=== PATIENT | female | born 1945 | race Caucasian/White ===

== ENCOUNTER → 2025-10-09 00:26 | Outpatient (CLI) | payer MEDICARE, OTHER, SELFPAY ==
--- NOTE | 2025-10-09 07:00 | DI.US_ITS ---
Exam(s) US NEEDLE LOCAL OTHER WO RAD EXAM: Ongoing left-sided submandibular lymphadenopathy,ULTRASOUND GUIDED BX,R59.0 COMPARISON: No exams were available for comparison TECHNIQUE: Ultrasound performed using standard protocol. FINDINGS: Sonography was provided for Dr. Thomas during the performance of a left submandibular lymph node biopsy. Please refer to the procedure report for complete details. DATA REPOSITORY:
--- NOTE | 2025-10-09 11:25 | PAPNONF_PTH ---
PATIENT: Heather Michaels LOC: [facility] U#:[id number] AGE/SX: 80/F ROOM: RE10/09/[address]: Mima Mcpherson : 1945 BED: DIS: SPEC #: [id number] RECD: 10/09/25 13:11 STATUS: FRITZ BUTTS #: [id number] CATHY: 10/09/25 11:[address]: Yonis Thomas DEPT: [facility] Cytology RECD BY: Elidia Amato ENTERED: 10/09/25 13:13 SP TYPE: HELGA GANDARA DR: Mar Leonardo Britney Tissues: 1 - BODY FLUID CYTO-FINE NEEDLE ASPIRATE-[facility] Procedures: BODY FLUID CYTO-FINE NEEDLE ASPIRATE-[facility] Comments: [id number] (PATH FNA CONSULT) (REFRIGERATED)
--- NOTE | 2025-10-09 12:34 | W.PROCNOTE ---
Date of service: 10/09/25 Time of Service: 12:35 Procedure Note Date of procedure: 10/09/25 Procedure: Ultrasound-guided FNA, left submandibular gland lesion, pathology present Surgeon/Proceduralist/Physician: Yonis Thomas Procedure Diagnosis: Left submandibular gland hypoechoic lesion Procedure Indications: The patient has a left hypoechoic region within her submandibular gland which was noted on previous ultrasounds. When this failed to resolve, options were explained to the patient regarding further management. She elected undergo a the above procedure. I reviewed the risks including bleeding, infection, and potential damage to the marginal mandibular nerve, she wished to proceed. Written consent was obtained, Procedure Description: The patient was then prepped and draped in appropriate fashion and ultrasound used to localize the lesion within the left submandibular gland. 2% lidocaine with 1/100,000 epinephrine was injected in the skin and subcutaneous tissues overlying the lesion and then a 25-gauge needle was passed into the posterior aspect of the lesion, and used to collect material. This revealed only inflammatory cells. A second pass was made into the lesion, this time approaching the anterior aspect of the lesion. Again the specimen revealed inflammatory cells. In both cases, ultrasound was used for guidance and visualization of the needle to be within the areas of concern. After discussion with the patient, no further biopsies were done. After ensuring adequate hemostasis, sterile dressing was applied to the site and the patient was allowed to sit, stand, and ambulate. She will remove the dressing in an hour and not replace it. She will call with any signs of infection or any other concerns. She will call if she does not hear from me within 1 week with regard to pathology results. She may use Tylenol for any discomfort. She had no further questions. She is comfortable with this plan. She is aware that further plans will depend upon the findings on pathology.
== END ==
LOC: DI 00:26
PROVIDERS: PCP Nurse Practitioner; Visit Provider Registered Nurse Maternal Newborn
DX: K11.8 Other diseases of salivary glands (principal); R59.0 Localized enlarged lymph nodes
CPT/HCPCS: 10005; 76942; 88104